=== PATIENT | male | born 1955 | race Caucasian/White ===

== ENCOUNTER → 2017-06-10 | Outpatient (CLI) | payer BC ==
[~2017-06-10] MED LIST: LEXISCAN IV ONE
--- NOTE | 2017-06-10 10:16 | US ---
Examination: Abdominal ultrasound. Clinical History: Nausea and vomiting. Technique: Real-time grayscale ultrasound was used to evaluate the right upper abdomen. Comparison: None available. Findings: Multiple small gallstones are noted in the gallbladder. No gallbladder wall thickening or pericholecy stic fluid is noted. The common bile duct measures 5 mm in diameter and is within normal limits. No intrahepatic biliary d uctal dilatation is noted. The liver is normal in echogenicity with no focal mass. The pancreas is poorly visualized and could not be adequately evaluated. The right kidney measures 10.0 cm in length and is normal in echogenicity with no focal mass, hydrone phrosis or nephrolithiasis noted. Impression: 1. Cholelithiasis. Reported By:
== END | disposition home or self-care (01) | DRG 313 ==
LOC: RAD 08:30
PROVIDERS: ATTEND Internal Medicine Cardiovascular Disease
DX: R07.9 Chest pain, unspecified (principal); R11.2 Nausea with vomiting, unspecified; K80.80 Other cholelithiasis without obstruction
CPT/HCPCS: 76705; 78452; 93017; A4222; A9502; J2785